=== PATIENT | male | born 1955 | race Caucasian/White ===

== ENCOUNTER 2018-02-21 16:11 | Emergency (ER) | payer SELFPAY ==
[2018-02-21] MEDS ORDERED: KETOROLAC 30 MG INJ IM (18:08)
[2018-02-21] MEDS: traMADol 50 MG TAB PO (19:06)
[2018-02-21] MEDS: NICARDipine HCL 30 MG CAPSULE PO (20:29)
== END 2018-02-21 21:03 | disposition home or self-care (01) ==
LOC: FTE 16:11
DX: M54.42 Lumbago with sciatica, left side (principal); I10 Essential (primary) hypertension
CPT/HCPCS: 72100; 93971; 99284-25